=== PATIENT | female | born 2000 | race Caucasian/White ===

== ENCOUNTER 2022-04-14 22:57 | Observation (INO) | payer OTHER ==
[2022-04-14] MEDS ORDERED: ALBUTEROL SO4 2.5/IPRATROPIUM 0.5 INH SOL 3 ML VIAL.NEB. NEB ONE (23:24)
[2022-04-15] MEDS: ALBUTEROL SO4 0.083% IH SOL 2.5 MG/3 ML VIAL.NEB. NEB SCH ×2 (01:03→01:18)
[2022-04-15] MEDS ORDERED: ALBUTEROL SO4 0.5 % INH SOLN 2.5 MG/0.5 ML VIAL.NEB. NEB ONE (01:06)
[2022-04-15 02:09] LABS: HEMATOCRIT 39.3 % (32.4-45.2); HEMOGLOBIN 13.5 GM/dL (10.7-15.3); MCH 29.5 pg (25.7-33.7); MCHC 34.4 g/dl (32.0-36.0); MEAN CELL VOLUME 85.7 fl (80-96); MEAN PLT VOLUME 8.7 fl (7.5-11.1); PLATELET COUNT 264 10^3/uL (134-434); RBC 4.58 M/mm3 (3.60-5.2); WHITE BLOOD COUNT 17.5 K/mm3 (4.0-10.0)
[2022-04-15 02:28] LABS: ALBUMIN 4.4 g/dl (3.4-5.0); BLOOD UREA NITROGEN 11.7 mg/dL (7-18); CALCIUM 9.4 mg/dL (8.5-10.1)
[2022-04-15 02:29] LABS: MAGNESIUM 2.5 mg/dL (1.8-2.4)
[2022-04-15 02:33] LABS: CREATININE 0.8 mg/dL (0.55-1.3)
[2022-04-15 02:34] LABS: BILIRUBIN,TOTAL 0.4 mg/dL (0.2-1); TOT PROT 7.7 g/dl (6.4-8.2)
[2022-04-15 04:10] LABS: ANISOCYTOSIS 3+; MACROCYTOSIS 0
[2022-04-15] MEDS: methylPREDNISolone NA SUCC 40 MG/1 ML VIAL IVPUSH SCH ×3 (07:00→17:36)
[2022-04-15 08:04] VITALS: BMI 25.7
[2022-04-15] MEDS: ALBUTEROL SO4 2.5/IPRATROPIUM 0.5 INH SOL 3 ML VIAL.NEB. NEB SCH ×4 (08:04→20:04)
[2022-04-15 09:59] LABS: HEMATOCRIT 37.2 % (32.4-45.2); MCH 29.8 pg (25.7-33.7); MCHC 34.9 g/dl (32.0-36.0); MEAN CELL VOLUME 85.2 fl (80-96); MEAN PLT VOLUME 8.4 fl (7.5-11.1); PLATELET COUNT 248 10^3/uL (134-434); RBC 4.36 M/mm3 (3.60-5.2); RDW 12.9 % (11.6-15.6); WHITE BLOOD COUNT 12.4 K/mm3 (4.0-10.0)
[2022-04-15 10:28] LABS: CALCIUM 9.2 mg/dL (8.5-10.1)
[2022-04-15 10:29] LABS: BLOOD UREA NITROGEN 13.9 mg/dL (7-18); MAGNESIUM 2.5 mg/dL (1.8-2.4)
[2022-04-15 10:30] LABS: PHOSPHOROUS 3.6 mg/dL (2.5-4.9)
[2022-04-15 10:31] LABS: CREATININE 0.8 mg/dL (0.55-1.3)
[2022-04-15] MEDS: BUDESONIDE/FORMETEROL FUMARATE 160/4.5 mcg INHALER IH SCH ×2 (11:03→22:35)
[2022-04-15] MEDS: PANTOPRAZOLE 40 MG TABLET PO SCH (11:04)
[2022-04-15] MEDS ORDERED: MONTELUKAST NA 10 MG TABLET PO SCH (22:00)
[2022-04-16] MEDS: methylPREDNISolone NA SUCC 40 MG/1 ML VIAL IVPUSH SCH ×2 (02:15→09:49)
[2022-04-16] MEDS: BUDESONIDE/FORMETEROL FUMARATE 160/4.5 mcg INHALER IH SCH (09:49)
[2022-04-16] MEDS: PANTOPRAZOLE 40 MG TABLET PO SCH (09:49)
[2022-04-16 09:51] VITALS: BP 124/70; PULSE 88; RESP 18; TEMP 99.1
== END 2022-04-16 14:26 | disposition home or self-care (01) ==
LOC: JER 22:57 → JERBED 04-15 02:54 → J8W 04-15 05:31
PROVIDERS: ADMIT Family Medicine; ATTEND Internal Medicine
PROC: 3E0F7GC Introduction of Other Therapeutic Substance into Respiratory Tract, Via Natural or Artificial Opening (ICD-10-PCS; principal; 2022-04-15)
PROC: 3E033GC Introduction of Other Therapeutic Substance into Peripheral Vein, Percutaneous Approach (ICD-10-PCS; 2022-04-15)
DX: J45.41 Moderate persistent asthma with (acute) exacerbation (principal); K29.70 Gastritis, unspecified, without bleeding; Z87.891 Personal history of nicotine dependence; R00.0 Tachycardia, unspecified
CPT/HCPCS: 0241U-QW; 36415; 71046-TC-FY; 80048; 80053; 83735; 84100; 84703; 85025; 85027; 93005; 93010; 94150; 94640; 96374; 99285-25; G0378

== ENCOUNTER 2023-03-27 17:40 | Emergency (ER) | payer OTHER ==
[2023-03-27 17:59] VITALS: BP 112/63; PULSE 70; RESP 18; TEMP 98.3; BMI 22.3
== END 2023-03-27 19:02 | disposition home or self-care (01) ==
LOC: FER 17:40
DX: R22.32 Localized swelling, mass and lump, left upper limb (principal); M25.532 Pain in left wrist; S61.315A Laceration without foreign body of left ring finger with damage to nail, initial encounter; W45.8XXA Other foreign body or object entering through skin, initial encounter
CPT/HCPCS: 73140-TC-LT-FY; 99283-25

== ENCOUNTER 2023-05-28 01:47 | Emergency (ER) | payer SELFPAY ==
[2023-05-28 01:55] VITALS: BMI 24.7
[2023-05-28] MEDS ORDERED: ALBUTEROL SO4 2.5/IPRATROPIUM 0.5 INH SOL 3 ML VIAL.NEB. NEB ONE (01:56)
[2023-05-28] MEDS ORDERED: methylPREDNISolone NA SUCC 125 MG/2 ML VIAL IVPUSH ONE (02:10)
[2023-05-28] MEDS ORDERED: methylPREDNISolone NA SUCC 125 MG/2 ML VIAL ONE (02:27)
[2023-05-28] MEDS: ALBUTEROL SO4 2.5/IPRATROPIUM 0.5 INH SOL 3 ML VIAL.NEB. NEB SCH ×3 (02:43→03:20)
[2023-05-28 03:01] LABS: BASO % 0.3 % (0-2.0); HEMOGLOBIN 14.2 GM/dL (10.7-15.3); PLATELET COUNT 274 10^3/uL (134-434)
[2023-05-28 03:06] LABS: EOS % 3.3 % (0-4.5); HEMATOCRIT 41.1 % (32.4-45.2); LYMPH % 18.9 % (8-40); MCH 29.7 pg (25.7-33.7); MCHC 34.6 g/dl (32.0-36.0); MEAN CELL VOLUME 85.8 fl (80-96); MEAN PLT VOLUME 7.9 fl (7.5-11.1); MONO % 4.3 % (3.8-10.2); NEUT % 73.2 % (42.8-82.8); RBC 4.79 M/mm3 (3.60-5.2); RDW 13.6 % (11.6-15.6); WHITE BLOOD COUNT 9.7 K/mm3 (4.0-10.0)
[2023-05-28 03:08] LABS: PROTHROMBIN TIME (PATIENT) 11.6 SEC (9.7-13.0)
[2023-05-28 03:11] LABS: ACTIVATED PTT 30.4 SECONDS (25.2-36.5)
[2023-05-28 03:19] LABS: POTASSIUM 3.4 mmol/L (3.5-5.1)
[2023-05-28 03:21] LABS: CALCIUM 9.3 mg/dL (8.5-10.1)
[2023-05-28 03:22] LABS: ALBUMIN 4.2 g/dl (3.4-5.0); BLOOD UREA NITROGEN 9.4 mg/dL (7-18); MAGNESIUM 1.8 mg/dL (1.8-2.4)
[2023-05-28] MEDS ORDERED: ALBUTEROL SO4 HFA INHALER IH ONE ×2 (03:22→04:37)
[2023-05-28 03:25] LABS: CREATININE 0.8 mg/dL (0.55-1.3)
[2023-05-28 03:27] LABS: BILIRUBIN,TOTAL 0.3 mg/dL (0.2-1); TOT PROT 7.3 g/dl (6.4-8.2)
[2023-05-28] MEDS ORDERED: POTASSIUM CHLORIDE TABS 20 MEQ TABLET.ER (FP) PO ONE ×2 (03:43→04:37)
[2023-05-28] MEDS ORDERED: MAGNESIUM SULF 50% (8.12 MEQ/2 ML-1 GM VIAL) IVPB ONE (03:43)
[2023-05-28] MEDS ORDERED: MAGNESIUM SULFATE IN WATER 2 GM/50 ML IVPB IVPB ONE (04:37)
[2023-05-28 04:46] VITALS: BP 128/71; TEMP 98.1
[2023-05-28 04:48] VITALS: PULSE 104; RESP 12
== END 2023-05-28 05:12 | disposition home or self-care (01) ==
LOC: JER 01:47
PROC: 3E033NZ Introduction of Analgesics, Hypnotics, Sedatives into Peripheral Vein, Percutaneous Approach (ICD-10-PCS; principal; 2023-05-28)
PROC: 3E0F7GC Introduction of Other Therapeutic Substance into Respiratory Tract, Via Natural or Artificial Opening (ICD-10-PCS; 2023-05-28)
DX: R06.02 Shortness of breath (principal); R07.9 Chest pain, unspecified; J45.909 Unspecified asthma, uncomplicated; Z20.822 Contact with and (suspected) exposure to COVID-19
CPT/HCPCS: 0241U-QW; 36415; 71046-TC-FY; 80053; 83735; 84484; 84703; 85025; 85610; 85730; 93005; 93010; 99285-25

== ENCOUNTER 2024-01-12 11:58 | Emergency (ER) | payer OTHER ==
[2024-01-12 12:11] VITALS: BP 118/65; PULSE 89; RESP 18; BMI 25.7
[2024-01-12 12:12] VITALS: TEMP 98.6
[2024-01-12] MEDS ORDERED: ACETAMINOPHEN 500 MG TABLET (FP) ONE (12:42)
[2024-01-12] MEDS: ACETAMINOPHEN 500 MG TABLET (FP) PO ONE (12:43)
== END 2024-01-12 13:35 | disposition home or self-care (01) ==
LOC: FER 11:58
DX: M79.661 Pain in right lower leg (principal); W22.8XXA Striking against or struck by other objects, initial encounter; Y93.64 Activity, baseball
CPT/HCPCS: 73590-TC-RT-FY; 99283-25